=== PATIENT | male | born 1960 | race Two or more races ===

== ENCOUNTER 2021-04-05 09:46 | Emergency (ER) | payer SELFPAY ==
[~2021-04-05] VITALS: Ht 177.8 cm; Wt 90.9 kg
[2021-04-05 11:15] VITALS: BP 172/151
== END 2021-04-05 11:40 | disposition home or self-care (01) ==
LOC: EMS 09:46 → EDBD 09:46 → EMS 11:40
DX: F03.90 Unspecified dementia, unspecified severity, without behavioral disturbance, psychotic disturbance, mood disturbance, and anxiety (principal); F69 Unspecified disorder of adult personality and behavior; Z88.0 Allergy status to penicillin
CPT/HCPCS: 99283